=== PATIENT | female | born 1935 | race Hispanic/Latino ===

== ENCOUNTER → 2019-08-06 | Outpatient (CLI) | payer MEDICARE ==
[~2019-08-06] MED LIST: ASPIRIN325 MG PO; CIPRO500 MG PO; LOVASTATIN20 MG PO; NAPROXEN500 MG PO; PRAVASTATIN SOD20 MG PO; PROTONIX PO; REGADENOSON 0.4 MG/5 ML SYR IV ONE; TIZANIDINE HCL4 MG PO; TYLENOL WITH C1 EACH PO; ZOFRAN ODT4 MG PO
== END ==
LOC: NM 09:25
PROVIDERS: ATTEND Internal Medicine Cardiovascular Disease
DX: I44.7 Left bundle-branch block, unspecified (principal); R07.9 Chest pain, unspecified
CPT/HCPCS: 78452; 93017; A9502; J2785

== ENCOUNTER 2021-05-27 17:37 | Inpatient (IN) | payer MEDICARE ==
[~2021-05-27] VITALS: Ht 170.2 cm; Wt 57.6 kg
[~2021-05-27 17:37] MED LIST changes: -REGADENOSON 0.4 MG/5 ML SYR IV ONE
[2021-05-27 18:03] LABS: BASOPHILS # (AUTO) 0.1 (0.0-0.1); BASOPHILS % 0.8 % (0.0-1.0); EOSINOPHILS # (AUTO) 0.1 (0.0-0.4); EOSINOPHILS % 1.2 % (0.0-6.0); HEMATOCRIT 33.7 % (34.2-44.1); HEMOGLOBIN 11.6 g/dL (12.0-16.0); LYMPHOCYTES # (AUTO) 2.1 (1.0-3.2); LYMPHOCYTES % 35.1 % (18.0-39.1); MEAN CORPUSCULAR HEMOGLOBIN 30.6 pg (28-32); MEAN CORPUSCULAR HGB CONC 34.4 g/dL (31-35); MEAN CORPUSCULAR VOLUME 88.9 fL (81-99); MONOCYTES # (AUTO) 0.5 (0.2-0.8); MONOCYTES % 8.7 % (4.4-11.3); NEUTROPHILS # (AUTO) 3.2 (2.1-6.9); NEUTROPHILS % 53.9 % (38.7-80.0); PLATELET COUNT 321 x10e3/uL (140-360); RED BLOOD COUNT 3.79 x10e6/uL (3.6-5.1)
[2021-05-27 18:16] LABS: ALBUMIN 4.4 g/dL (3.5-5.0); ALBUMIN/GLOBULIN RATIO 1.3 (0.8-2.0); ANION GAP 16.6 mmol/L (8-16); CALCIUM 9.2 mg/dL (8.4-10.2); CREATININE, SERUM 1.17 mg/dL (0.57-1.11); POTASSIUM 4.6 mmol/L (3.5-5.1)
[2021-05-27 18:23] LABS: CREATINE KINASE MB 1.2 ng/mL (0-5.0)
[2021-05-27] MEDS ORDERED: ONDANSETRON HCL INJ 2MG/ML 2ML 2 MG/ML VIAL IV STA (19:57)
[2021-05-27] MEDS ORDERED: ONDANSETRON HCL INJ 2MG/ML 2ML 2 MG/ML VIAL IV PRN (20:00)
[2021-05-27 22:28] VITALS: BP 157/69
[2021-05-27 22:46] VITALS: BP 157/69
[2021-05-27 23:06] VITALS: BP 157/69
[2021-05-28] VITALS (8 sets, daily range): BP systolic 125–152; BP diastolic 60–66
[2021-05-28] MEDS ORDERED: TRAMADOL HCL 50 MG TAB PO PRN (01:15)
[2021-05-28] MEDS ORDERED: DIPHENHYDRAMINE HCL 25 MG CAP PO PRN (01:15)
[2021-05-28] MEDS ORDERED: MELATONIN 5 MG TABLET PO PRN (01:15)
[2021-05-28] MEDS ORDERED: ONDANSETRON HCL INJ 2MG/ML 2ML 2 MG/ML VIAL IV PRN (01:15)
[2021-05-28] MEDS ORDERED: HYDRALAZINE HCL 20 MG/ML VIAL IV PRN (01:15)
[2021-05-28] MEDS ORDERED: LIDOCAINE 4% PATCH TP PRN (01:15)
[2021-05-28] MEDS ORDERED: ALBUTEROL/IPRATROPIUM 3 ML NEB NEB PRN (01:15)
[2021-05-28] MEDS ORDERED: ACETAMINOPHEN 325 MG TAB PO PRN (01:15)
[2021-05-28] MEDS ORDERED: POTASSIUM CHLORIDE 20 MEQ TAB CR PO PRN (01:15)
[2021-05-28] MEDS ORDERED: DEXTROSE 50% SYRINGE 50 ML IV PRN (01:15)
[2021-05-28 05:23] LABS: BASOPHILS # (AUTO) 0.1 (0.0-0.1); BASOPHILS % 1.4 % (0.0-1.0); EOSINOPHILS # (AUTO) 0.1 (0.0-0.4); EOSINOPHILS % 1.9 % (0.0-6.0); HEMATOCRIT 29.2 % (34.2-44.1); HEMOGLOBIN 9.9 g/dL (12.0-16.0); LYMPHOCYTES # (AUTO) 2.1 (1.0-3.2); MEAN CORPUSCULAR HEMOGLOBIN 30.6 pg (28-32); MEAN CORPUSCULAR HGB CONC 33.9 g/dL (31-35); MEAN CORPUSCULAR VOLUME 90.1 fL (81-99); MONOCYTES # (AUTO) 0.6 (0.2-0.8); MONOCYTES % 10.4 % (4.4-11.3); NEUTROPHILS # (AUTO) 2.9 (2.1-6.9); NEUTROPHILS % 50.1 % (38.7-80.0); PLATELET COUNT 280 x10e3/uL (140-360); RED BLOOD COUNT 3.24 x10e6/uL (3.6-5.1); RED CELL DISTRIBUTION WIDTH 12.8 % (11.7-14.4)
[2021-05-28 05:28] LABS: ALBUMIN 3.6 g/dL (3.5-5.0); ALBUMIN/GLOBULIN RATIO 1.3 (0.8-2.0); CALCIUM 8.5 mg/dL (8.4-10.2); CREATININE, SERUM 1.02 mg/dL (0.57-1.11)
[2021-05-28 06:21] LABS: PHOSPHORUS 3.5 MG/DL (2.3-4.7)
[2021-05-28 06:43] LABS: THYROID STIMULATING HORMONE 1.052 uIU/mL (0.350-4.940)
[2021-05-28] MEDS ORDERED: PANTOPRAZOLE SOD 40 MG TABEC PO SCH (07:30)
[2021-05-28] MEDS: CEFTRIAXONE 1 GM in SODIUM CHLORIDE 0.9% 50ML 50 ML IV SCH (08:46)
[2021-05-28] MEDS: DOCUSATE SODIUM 100 MG CAP PO PRN ×2 (12:20→20:25)
[2021-05-28] MEDS: SUCRALFATE 1 GM/10 ML SUSP NG SCH ×3 (13:00→20:15)
[2021-05-28] MEDS ORDERED: SODIUM CHLORIDE 0.9% 50ML 0 ML ONE (13:45)
[2021-05-28] MEDS ORDERED: IOPAMIDOL 370 MG/ML 200 ML INFUS..BTL INJ ONE (13:45)
[2021-05-28] MEDS: PANTOPRAZOLE SOD 40 MG TABEC PO SCH (16:30)
[2021-05-28] MEDS: ENOXAPARIN SOD INJ 40 MG/0.4 ML SYR SC SCH (16:58)
[2021-05-28] MEDS ORDERED: SODIUM CHLORIDE 0.9% 1000ML 1,000 ML IV ONE (18:30)
[2021-05-28] MEDS: SODIUM CHLORIDE 1 GM TAB PO SCH (20:15)
[2021-05-29] VITALS (8 sets, daily range): BP systolic 110–136; BP diastolic 53–60
[2021-05-29] MEDS ORDERED: SODIUM CHLORIDE 1 GM TAB PO ONE (01:30)
[2021-05-29 05:43] LABS: ANION GAP 11.9 mmol/L (8-16); CALCIUM 8.2 mg/dL (8.4-10.2); POTASSIUM 3.9 mmol/L (3.5-5.1)
[2021-05-29] MEDS: CEFTRIAXONE 1 GM in SODIUM CHLORIDE 0.9% 50ML 50 ML IV SCH (09:52)
[2021-05-29] MEDS: SODIUM CHLORIDE 1 GM TAB PO SCH ×2 (09:52→16:29)
[2021-05-29] MEDS: SUCRALFATE 1 GM/10 ML SUSP NG SCH ×4 (09:52→20:59)
[2021-05-29] MEDS: PANTOPRAZOLE SOD 40 MG TABEC PO SCH ×2 (09:53→16:29)
[2021-05-29] MEDS ORDERED: BISACODYL 10 MG SUPP PR NR ×2 (14:15→18:00)
[2021-05-29] MEDS: ENOXAPARIN SOD INJ 40 MG/0.4 ML SYR SC SCH (16:29)
[2021-05-29 17:09] LABS: OSMOLALITY,SERUM OSMOMETER 259 mOsmol/kg (280-301)
[2021-05-30] VITALS: BP 120/56
[2021-05-30 04:00] VITALS: BP 115/55
[2021-05-30 05:01] LABS: BASOPHILS # (AUTO) 0.1 (0.0-0.1); BASOPHILS % 1.4 % (0.0-1.0); EOSINOPHILS # (AUTO) 0.1 (0.0-0.4); EOSINOPHILS % 1.8 % (0.0-6.0); HEMATOCRIT 27.8 % (34.2-44.1); HEMOGLOBIN 9.3 g/dL (12.0-16.0); LYMPHOCYTES # (AUTO) 1.9 (1.0-3.2); LYMPHOCYTES % 37.5 % (18.0-39.1); MEAN CORPUSCULAR HEMOGLOBIN 30.1 pg (28-32); MEAN CORPUSCULAR HGB CONC 33.5 g/dL (31-35); MONOCYTES # (AUTO) 0.5 (0.2-0.8); NEUTROPHILS # (AUTO) 2.5 (2.1-6.9); NEUTROPHILS % 49.1 % (38.7-80.0); PLATELET COUNT 283 x10e3/uL (140-360); RED BLOOD COUNT 3.09 x10e6/uL (3.6-5.1); RED CELL DISTRIBUTION WIDTH 13.2 % (11.7-14.4)
[2021-05-30 05:22] LABS: ANION GAP 11.8 mmol/L (8-16); CALCIUM 8.2 mg/dL (8.4-10.2); CREATININE, SERUM 1.06 mg/dL (0.57-1.11); POTASSIUM 3.8 mmol/L (3.5-5.1)
[2021-05-30 08:00] VITALS: BP 115/55
[2021-05-30 08:18] VITALS: BP 149/70
[2021-05-30] MEDS: PANTOPRAZOLE SOD 40 MG TABEC PO SCH ×2 (09:07→16:54)
[2021-05-30] MEDS: SUCRALFATE 1 GM/10 ML SUSP NG SCH ×3 (09:07→16:54)
[2021-05-30] MEDS: CEFTRIAXONE 1 GM in SODIUM CHLORIDE 0.9% 50ML 50 ML IV SCH (09:07)
[2021-05-30] MEDS: SODIUM CHLORIDE 1 GM TAB PO SCH ×2 (09:07→16:55)
[2021-05-30 11:41] VITALS: BP 132/48
[2021-05-30] MEDS ORDERED: CEFDINIR300 MG PO (15:31)
[2021-05-30 15:56] VITALS: BP 115/78
[2021-05-30] MEDS: ENOXAPARIN SOD INJ 40 MG/0.4 ML SYR SC SCH (16:55)
== END 2021-05-30 17:27 | disposition home or self-care (01) | DRG 392 ==
LOC: ER 18:00 → ERHOLD 18:50 → MED/SURG2 20:12
PROVIDERS: ADMIT Internal Medicine; ATTEND Internal Medicine
DX: K21.9 Gastro-esophageal reflux disease without esophagitis (principal); E87.1 Hypo-osmolality and hyponatremia; J06.9 Acute upper respiratory infection, unspecified; E78.00 Pure hypercholesterolemia, unspecified; K29.70 Gastritis, unspecified, without bleeding; I44.7 Left bundle-branch block, unspecified; Z20.822 Contact with and (suspected) exposure to COVID-19; N18.2 Chronic kidney disease, stage 2 (mild); E86.0 Dehydration
CPT/HCPCS: 36415; 71046; 74176; 80048; 80053; 80061; 82550; 82553; 83036; 83735; 83880; 83930; 83935; 84100; 84295; 84443; 84484; 85025; 93005; 93306; 94799; 96361; 99251; 99284; J0696; J1650; J7030; Q9967; U0002

== ENCOUNTER 2021-09-27 19:25 | Emergency (ER) | payer MEDICARE, OTHER ==
[~2021-09-27] VITALS: Ht 170.2 cm; Wt 57.6 kg
[~2021-09-27 19:25] MED LIST changes: +CEFDINIR300 MG PO
== END 2021-09-27 21:52 | disposition home or self-care (01) ==
LOC: FSED 20:50
DX: S00.03XA Contusion of scalp, initial encounter (principal); W01.0XXA Fall on same level from slipping, tripping and stumbling without subsequent striking against object, initial encounter; Y93.01 Activity, walking, marching and hiking; Y92.098 Other place in other non-institutional residence as the place of occurrence of the external cause; E78.5 Hyperlipidemia, unspecified; K21.9 Gastro-esophageal reflux disease without esophagitis; E78.00 Pure hypercholesterolemia, unspecified; Z85.3 Personal history of malignant neoplasm of breast
CPT/HCPCS: 70450; 99283